=== PATIENT | male | born 2000 | race African-American/Black ===

== ENCOUNTER 2024-12-29 10:28 | Emergency (ER) | payer OTHER ==
[~2024-12-29] VITALS: Ht 180.3 cm; Wt 86.4 kg
[2024-12-29 11:43] VITALS: TEMP 97.6
[2024-12-29 13:55] VITALS: BP 130/69; O2SAT 98
== END 2024-12-29 13:57 | disposition home or self-care (01) ==
LOC: M ED 10:28
DX: S89.92XA Unspecified injury of left lower leg, initial encounter (principal); W19.XXXA Unspecified fall, initial encounter; Y92.9 Unspecified place or not applicable; Y93.89 Activity, other specified; Y99.1 Military activity; Z91.018 Allergy to other foods